=== PATIENT | male | born 1975 | race Two or more races ===

== ENCOUNTER 2019-09-15 11:22 | Emergency (ER) | payer BC, OTHER ==
[~2019-09-15] VITALS: Ht 152.4 cm; Wt 102.1 kg
[2019-09-15 12:02] VITALS: BP 119/54
[2019-09-15] MEDS ORDERED: ACETAMINOPHEN/CODEINE#3 (300/30mg) TAB PO ONE (12:30)
[2019-09-15] MEDS ORDERED: IBUPROFEN 800 MG TAB PO ONE (12:30)
== END 2019-09-15 13:10 | disposition home or self-care (01) ==
LOC: ER 11:22
DX: S86.812A Strain of other muscle(s) and tendon(s) at lower leg level, left leg, initial encounter (principal); X50.9XXA Other and unspecified overexertion or strenuous movements or postures, initial encounter; Y93.89 Activity, other specified; Y92.89 Other specified places as the place of occurrence of the external cause; Y99.8 Other external cause status
CPT/HCPCS: 73700